=== PATIENT | female | born 1935 | race Caucasian/White ===

== ENCOUNTER 2016-11-14 10:36 | Observation (INO) | payer MEDICARE, OTHER ==
[2016-11-14 10:57] VITALS: TEMP 98.4
--- NOTE | 2016-11-14 11:22 | C.PDOC ---
History Of Present Illness 81 yr old female with PMHx of HTN and diabetes, presents to the ER accompanied by son with complaints of difficulty speaking and tongue swelling since morning. Son states the patient was fine last night and woke up like this in the morning. Patient did not take her HTN medicine today. She is unsure of what medications she takes. Denies any pain, chest pain, SOB, rash, facial or extremity weakness or numbness. Pharmacy was called to verify HTN medicine, patient is on Lisinopril 40mg QD. Time Seen by Provider: 11/14/16 11:13 Chief Complaint (Nursing): ENT Problem History Per: Patient, Family (Son) History/Exam Limitations: None Onset/Duration Of Symptoms: Sudden Onset (Since morning ) Past Medical History Reviewed: Historical Data, Nursing Documentation, Vital Signs Vital Signs: Last Vital Signs Temp 98.4 F 11/14/16 10:53 Pulse 54 L 11/14/16 14:16 Resp 18 11/14/16 14:16 BP 144/55 L 11/14/16 14:16 Pulse Ox 100 11/14/16 17:08 - Medical History PMH: Dementia, Diabetes, HTN Family History: States: No Known Family Hx - Social History Hx Alcohol Use: No Hx Substance Use: No Review Of Systems Except As Marked, All Systems Reviewed And Found Negative. Constitutional: Positive for: Other ((+) Difficulty speaking ) ENT: Positive for: Throat Swelling Cardiovascular: Negative for: Chest Pain Respiratory: Negative for: Shortness of Breath Gastrointestinal: Negative for: Nausea, Vomiting Skin: Negative for: Rash Neurological: Negative for: Weakness, Numbness Physical Exam - Physical Exam Appears: Non-toxic, No Acute Distress Skin: Warm, Dry, No Rash Head: Atraumatic, Normacephalic Eye(s): bilateral: Normal Inspection, EOMI Nose: Normal, No Flaring Oral Mucosa: Moist Tongue: Swelling Lips: Normal Appearing, No Swelling Teeth: Dentures Gingiva: Normal Appearing Throat: Normal, No Erythema, No Exudate, Other ((+) Uvula midline no swelling. ) Neck: Normal ROM Lymphatic: Other (submental area mildly swollen) Chest: Symmetrical, No Tenderness Cardiovascular: Rhythm Regular, No Murmur Respiratory: Normal Breath Sounds, No Rales, No Rhonchi, No Wheezing Gastrointestinal/Abdominal: Soft, No Tenderness Extremity: Bilateral: Atraumatic, Hips Non-Tender, No Pedal Edema, Normal Color And Temperature, Normal ROM, Other (no swelling) Pulses: Left Radial: Normal Neurological/Psych: Oriented x3, Other (Muffled speech) Gait: Steady ED Course And Treatment - Laboratory Results Result Diagrams: 11/14/16 11:29 11/14/16 11:29 Lab Interpretation: No Acute Changes O2 Sat by Pulse Oximetry: 100 (RA ) Pulse Ox Interpretation: Normal Medical Decision Making Medical Decision Making: IMPRESSION: Angioedema, patient takes Lisinopril PLAN: * CBC * CMP * Benadryl IVP * Solumedrol IVP * Obs ED Case discussed with attending who also examined patient at bedside. Agreed with treatment and plan for observation ED OBSERVATION Date of observation admission: 11/14/16 Time of observation admission: 11:49 - Observation admission statement Patient is being placed in observation because:: Mouth swelling - Goals of Observation Goals of observation are:: observe for any worsening swelling, labs and treat with steroids - Progress Note Progress Note: 11/14/16 12:30 Labs are WNL 11/14/16 13:10 Patient seated in bed comfortably 11/14/16 14:50 Patient family asking for discharge. Patient also asking for discharge. She states she feels better, tongue swelling has improved. She is able to talk more clearly. Uvula remains midline. She is able to tolerate secretions. No SOB or wheezing. Disposition - Disposition Disposition: HOME/ ROUTINE Disposition Time: 14:55 Condition: IMPROVED - POA Present On Arrival: None - Clinical Impression Clinical Impression: Angioedema - PA / BOOSTER OPERATOR / Resident Statement MD/DO has reviewed & agrees with the documentation as recorded. - Scribe Statement The provider has reviewed the documentation as recorded by the Scribe Gabbi Garcia All medical record entries made by the Ovidioibsolitario were at my direction and personally dictated by me. I have reviewed the chart and agree that the record accurately reflects my personal performance of the history, physical exam, medical decision making, and the department course for this patient. I have also personally directed, reviewed, and agree with the discharge instructions and disposition.
[2016-11-14] MEDS ORDERED: DiphenhydrAMINE 50 mg/ml Inj IVP STA (11:24)
[2016-11-14] MEDS ORDERED: Sodium Chloride 0.9% 1,000 ML IV ONE (11:24)
[2016-11-14] MEDS ORDERED: Sodium Chloride 0.9% 0 ML IV ONE (11:29)
[2016-11-14] MEDS ORDERED: DiphenhydrAMINE 50 mg/ml Inj ONE (11:29)
[2016-11-14] MEDS ORDERED: Sodium Chloride 0.9% 1,000 ML ONE (11:29)
[2016-11-14 11:33] LABS: BASO # 0.1 K/uL (0.0-0.2); BASO % 0.8 % (0.0-2.0); EOS # 0.2 K/uL (0.0-0.7); EOS % 2.7 % (0.0-4.0); HEMATOCRIT 36.5 % (34.0-47.0); LYMPH # 2.8 K/uL (1.0-4.3); MEAN CELL VOLUME 91.2 fL (81.0-99.0); MEAN CORPUSCULAR HEMOGLOBIN 28.9 pg (27.0-31.0); MEAN CORPUSCULAR HGB CONC 31.7 g/dL (33.0-37.0); MEAN PLATELET VOLUME 9.9 fL (7.2-11.7); MONO # 0.7 K/uL (0.0-0.8); MONO % 9.2 % (0.0-10.0); NRBC % 0.1 % (0.0-2.0); RED CELL DISTRIBUTION WIDTH 14.8 % (11.5-14.5); WHITE BLOOD COUNT 8.1 K/uL (4.8-10.8)
[2016-11-14 11:48] LABS: CHLORIDE 106 mmol/L (98-107); SODIUM 145 mmol/L (132-148)
[2016-11-14 11:49] LABS: POTASSIUM 4.3 mmol/L (3.6-5.2)
[2016-11-14 11:51] LABS: ALB/GLOB RATIO 1.2 (1.0-2.1); ALKALINE PHOSPHATASE 103 U/L (38-126); AST/SGOT 29 U/L (14-36); BILIRUBIN,TOTAL 0.8 mg/dL (0.2-1.3); BLOOD UREA NITROGEN 15 mg/dL (7-17); CARBON DIOXIDE 26 mmol/L (22-30); GFR AFRICAN-AMERICAN > 60; TOTAL PROTEIN 7.4 g/dL (6.3-8.3)
[2016-11-14 11:52] LABS: ALT/SGPT 27 U/L (9-52); CALCIUM 9.7 mg/dl (8.6-10.4); GLUCOSE,RANDOM 93 mg/dL (65-105)
[2016-11-14 14:20] VITALS: BP 144/55; PULSE 54; RESP 18
[2016-11-14 17:05] VITALS: O2SAT 100
== END 2016-11-14 14:55 | disposition home or self-care (01) ==
LOC: C.ER 10:36 → C.9OBSV 11:49
PROVIDERS: ADMIT Emergency Medicine; ATTEND Emergency Medicine
DX: T78.3XXA Angioneurotic edema, initial encounter (principal); F03.90 Unspecified dementia, unspecified severity, without behavioral disturbance, psychotic disturbance, mood disturbance, and anxiety; I10 Essential (primary) hypertension
CPT/HCPCS: 80053; 85025; 96361; 96374; 96375; 99285; G0378; J1200; J2930; J7040